=== PATIENT | female | born 1960 | race Caucasian/White ===

== ENCOUNTER 2024-06-02 06:39 | Day surgery (SDC) | payer BC, SELFPAY ==
[2024-06-02 11:39] VITALS: BP 115/64; BMI 28.8
[2024-06-02 11:46] VITALS: BMI 28.8
[2024-06-02 13:04] VITALS: BP 115/68
[2024-06-02 13:15] VITALS: BP 104/64
[2024-06-02 13:30] VITALS: BP 109/70
== END 2024-06-02 13:41 | disposition home or self-care (01) ==
LOC: GI 06:39
PROVIDERS: ATTENDING PHYSICIAN Internal Medicine
DX: K31.84 Gastroparesis (principal); Z98.890 Other specified postprocedural states
CPT/HCPCS: 43249; 43236; C1726; J0585

== ENCOUNTER → 2024-07-28 06:19 | Day surgery (SDC) | payer BC, SELFPAY | LOC: GI 06:19 | PROVIDERS: ATTENDING PHYSICIAN Internal Medicine Gastroenterology | DX: D12.0 Benign neoplasm of cecum (principal); D12.3 Benign neoplasm of transverse colon; K57.30 Diverticulosis of large intestine without perforation or abscess without bleeding; Q43.8 Other specified congenital malformations of intestine; Z86.0101 Personal history of adenomatous and serrated colon polyps | CPT/HCPCS: 45385; 88305 ==

== ENCOUNTER → 2024-11-24 11:23 | Outpatient (REF) | payer BC, MEDICARE, OTHER, SELFPAY | LOC: WDC 11:23 | PROVIDERS: ATTENDING PHYSICIAN Family Medicine | DX: N95.9 Unspecified menopausal and perimenopausal disorder (principal); Z13.820 Encounter for screening for osteoporosis; Z12.31 Encounter for screening mammogram for malignant neoplasm of breast; I10 Essential (primary) hypertension; E78.5 Hyperlipidemia, unspecified | CPT/HCPCS: 77063; 77067; 77080 ==

== ENCOUNTER → 2024-12-07 10:03 | Outpatient (REF) | payer BC, MEDICARE, OTHER, SELFPAY | LOC: WDC 10:03 | PROVIDERS: ATTENDING PHYSICIAN Family Medicine | DX: R92.8 Other abnormal and inconclusive findings on diagnostic imaging of breast (principal) | CPT/HCPCS: 76642 ==

== ENCOUNTER 2025-05-12 06:02 | Day surgery (SDC) | payer BC, MEDICARE, OTHER, SELFPAY ==
[2025-05-12 11:03] VITALS: BMI 26.7
[2025-05-12 11:04] VITALS: BMI 26.7
[2025-05-12 11:05] VITALS: BP 105/86
[2025-05-12 12:57] VITALS: BP 91/68
[2025-05-12 13:00] VITALS: BP 102/71
[2025-05-12 13:15] VITALS: BP 103/69
== END 2025-05-12 13:25 | disposition home or self-care (01) ==
LOC: SDS 06:02
PROVIDERS: ATTENDING PHYSICIAN Internal Medicine Gastroenterology
DX: R13.10 Dysphagia, unspecified (principal); R68.81 Early satiety; Z98.0 Intestinal bypass and anastomosis status; Z98.890 Other specified postprocedural states
CPT/HCPCS: 43450; 43236; C1726; J0585

== ENCOUNTER → 2025-08-18 10:10 | Outpatient (REF) | payer BC, OTHER, MEDICARE, SELFPAY ==
[2025-08-18 11:24] LABS: Hematocrit 42.2 % (37.0-47.0); Hemoglobin 13.2 g/dL (12.0-16.0); Mean Corp Hgb Conc. 31.3 g/dL (33.0-37.0); Mean Corpuscular Volume 79.9 fL (81.0-99.0); Nucleated Red Blood Cells % 0 %; Platelet Count 182 10^3/uL (130-400); Red Cell Dist. Width 15.1 % (11.5-14.5)
[2025-08-18 11:54] LABS: Iron 59 ug/dl (37-170)
[2025-08-18 12:03] LABS: Total Iron Binding Capacity 421 ug/dl (265-497)
[2025-08-18 12:46] LABS: Ferritin 11.6 ng/ml (11.1-264.0)
[2025-08-18 14:37] LABS: Folate 3.1 ng/ml (2.76-20); Vitamin B12 565 pg/ml (239-931)
== END ==
LOC: REG 10:10
PROVIDERS: ATTENDING PHYSICIAN Internal Medicine Hematology & Oncology; FAMILY PHYSICIAN Family Medicine
DX: C15.5 Malignant neoplasm of lower third of esophagus (principal); I82.890 Acute embolism and thrombosis of other specified veins; E55.9 Vitamin D deficiency, unspecified; D50.0 Iron deficiency anemia secondary to blood loss (chronic)
CPT/HCPCS: 36415; 82607; 82728; 82746; 83540; 83550; 85025

== ENCOUNTER 2025-08-23 16:34 | Inpatient (IN) | payer BC, MEDICARE, SELFPAY ==
[2025-08-23] VITALS (11 sets, daily range): BP systolic 102–135; BP diastolic 58–82; BMI 26.0
[2025-08-23 11:16] LABS: Hematocrit 39.0 % (37.0-47.0); Hemoglobin 12.5 g/dL (12.0-16.0); Mean Corp Hgb Conc. 32.1 g/dL (33.0-37.0); Mean Corpuscular Volume 78.0 fL (81.0-99.0); Nucleated Red Blood Cells % 0 %; Platelet Count 170 10^3/uL (130-400); Red Cell Dist. Width 15.0 % (11.5-14.5)
[2025-08-23 11:30] LABS: ALT (SGPT) 22 U/L (0-35); AST (SGOT) 29 U/L (14-36); Albumin 3.9 g/dl (3.5-5.0); Alkaline Phosphatase 101 U/L (38-126); Blood Urea Nitrogen 11 mg/dl (7-17); Calcium 8.9 mg/dl (8.4-10.2); Carbon Dioxide 25 mmol/L (22-30); Chloride 108 mmol/L (98-107); Glucose 111 mg/dl (70-99); Potassium 4.6 mmol/L (3.5-5.1); Sodium 137 mmol/L (135-145); Total Protein 7.1 g/dl (6.3-8.2); eGFR > 60.00
--- NOTE | 2025-08-23 11:33 | ED.GENMED ---
History of Present Illness
General
Chief Complaint: Abdominal Pain
Source: patient
Exam Limitations: none
Time Seen by Provider: 08/23/25 11:05
Nursing documentation reviewed up to this point in time: agreed with
History of Present Illness
History of Present Illness:
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 Patient
reports onset of symptoms 2 weeks ago and have been constant since that time. She says that she was hoping symptoms would improve but they have not resolved which prompted her to finally come to the ER. She describes her pain in the right upper
abdomen that radiates towards the right flank. No clear triggering or relieving factors noted. She has had some nausea and vomiting. No hematemesis reported. She says she has had dark stools initially they were loose now they are formed but
remain dark. No bright red blood reported. She has felt more weak and mildly dizzy over the past few days.
Past History
Past History
ED Past Medical History: Cancer (Esophageal), GERD, HTN, Hypercholesterolemia, Other (Diverticulosis and diverticulitis) and Other (PE)
ED Past Surgical History: Cholecystectomy, Gynecological (Bilateral oophorectomy) and Other (Mark Donny esophagectomy)
Social History
Tobacco: Former smoker
Alcohol: Occasional
Drug: None
Personal:
Living: with family
Employment: Employed
Family History
Family History: Hypertension
Phy Exam
Physical Exam
Physical Exam:
General: Awake, alert, oriented x3; no acute distress
Head: Normocephalic, atraumatic
Eyes: Conjunctiva normal, sclera anicteric
Throat: Airway intact, handling secretions
Neck: Trachea midline, supple without meningismus
Lungs: Clear to auscultation bilaterally, no wheezing, rales, rhonchi
Heart: Regular rate and rhythm, no murmurs, gallops, or rubs appreciated
Abd: Soft, non distended, tender to palpation right upper abdomen and epigastrium with no peritoneal signs or palpable hepatosplenomegaly
Rectal: Brown stool Hemoccult negative here
Neuro: Grossly intact
Skin: Warm and dry, no jaundice
Extremities: No edema in extremities, warm and well-perfused
Scores
Heart Failure Risk
Heart Failure Risk Score: Not Applicable
Heart Score for Chest Pain Patients
STEMI patient?: Not applicable
Withdrawal Assessment of Alcohol
Withdrawal Assessment Completed?: Not applicable
Course
Orders/Labs/Results
Orders:
Orders
08/23/25 11:07
Type And Crossmatch [Type+Screen] Urgent
Complete Blood Count/With Diff Urgent
Comprehensive Metabolic Panel Urgent
08/23/25 11:37
CT Abd/pelvis W Iv Cont Urgent
Comment:
Reason For Exam: upper abd pain
08/23/25 11:46
Prothrombin Time Urgent
08/23/25 12:58
GASTROINTESTINAL CONSULT Urgent
Consulting Provider: Marybeth Morales
Was physician already notified: Yes
Abnormal Lab Results
08/23/25
11:07
WBC 4.2 L 10^3/uL
(4.8-10.8)
MCV 78.0 L fL
(81.0-99.0)
MCH 25.0 L pg
(27.0-31.0)
MCHC 32.1 L g/dL
(33.0-37.0)
RDW 15.0 H %
(11.5-14.5)
MPV 10.8 H fL
(7.4-10.4)
Monocytes % 11.5 H %
(1.7-9.3)
Chloride 108 H mmol/L
(98-107)
Glucose 111 H mg/dl
(70-99)
08/23/25 11:07
08/23/25 11:07
Vital Signs
Initial and Last Documented VS:
Initial Vital Signs
Temp Pulse Resp BP Pulse Ox
37.1 C 78 16 121/82 98
08/23/25 09:44 08/23/25 09:44 08/23/25 09:44 08/23/25 09:44 08/23/25 09:44
Last Documented Vital Signs
Temp Pulse Resp BP Pulse Ox
37.1 C 61 20 102/62 96
08/23/25 09:44 08/23/25 12:45 08/23/25 12:45 08/23/25 12:40 08/23/25 12:45
MDM/Problems Addressed
Differential Diagnosis Includes:
Abdominal pain/dark stools: Cholelithiasis/choledocholithiasis, cholecystitis, gastritis/PUD, cancer recurrence, bowel obstruction
MDM/Problems Addressed:
65-year-old female presents to the ER for evaluation of upper abdominal pain and dark stools over the past 2 weeks. She has a history of esophageal cancer status postresection follows with oncology and GI (Dr. Vela). Vitals and exam are as
above.�Notably she had brown stool on rectal exam today which was heme-negative. Plan to place an IV check labs including CBC and CMP, INR. Will check type and screen. Sent for CT abdomen. Monitor closely reassess after the above.
Initial labs reviewed: Hemoglobin is 12.5 stable. Platelets acceptable. Chemistry no clinically significant abnormalities�notably normal BUN. Awaiting rest of labs and imaging. I did discuss the case with GI to evaluate.
CT reviewed shows signs concerning for mild small bowel obstruction. Patient still having pain but no vomiting. Plan to admit for continued management. N.p.o. for now, IV fluids in progress. Discussed with hospitalist.
Chronic conditions affecting care:
History of prior SMA clot on Coumadin; history of esophageal cancer
*Radiology
Radiology exam reviewed: radiology read reviewed
*Pulse Oximetry
SaO2: 96
Oxygen Mode of Delivery: Room air
Patient hypoxic: no (96%)
*Critical Care Note
Total Time (30-74mins, 75-104mins- exclusive of procedures): Not Applicable
Data Reviewed
Review of Other/Old Records Reveals: Labs, Records and Testing (Prior endoscopy reviewed)
Source: patient, records and family
Patient Management
Discussion with other providers: [employer] Hatcher[employer] Manager (Discussed with GI)
ED Attending Note
-
Portions of this chart may have been created with voice recognition software.� Occasional wrong word or��sound alike� substitutions may have occurred due to the inherent limitations of voice recognition software.
Discharge Plan
Departure
Patient Disposition: Admit
Date of Disposition: 08/23/25
Time of Disposition: 15:32
Admit to doctor: Poonam
Presentation/result/management discussed w/ accepting MD/DO: Hospitalist
Discharge Problem:
Small bowel obstruction
Prescriptions:
No Action
paroxetine HCl [Paxil] 10 MG tablet
10 mg PO PRN PRN (Reason: mental health)
acetaminophen 325 MG tablet
650 mg PO Q4HPRN PRN (Reason: mild pain/ARZATE/temp> 100.4F) 0RF
folic acid 0.4 MG tablet
0.4 mg PO DAILY
Omeprazole/Sodium Bicarbonate [Omeprazole-Bicarb 20-1,100 Cap] 1 EACH Capsule
1 cap PO DAILY
Eliquis 5 MG tablet
2.5 mg PO BID
ondansetron 4 mg tablet,disintegrating
4 mg PO Q8H PRN (Reason: nausea and vomiting) 3 Days Qty: 9 0RF
multivitamin Tablet,Chewable
1 tab PO DAILY
fluoxetine 10 mg Tablet
10 mg PO DAILY
pantoprazole 40 mg Tablet,Delayed Release (Dr/Ec)
40 mg PO BID
Referrals:
Audie Darden MD [Family Provider, Family Practice]
Interventions
Interventions:
*Risk Screen - Suicide Last Done: 08/23/25 09:44
*General Assessment Last Done: 08/23/25 09:44
*Neglect/Abuse Screening Last Done: 08/23/25 09:44
*ED- Fall Risk Assessment Last Done: 08/23/25 09:44
*ED COVID-19 Vaccine History Last Done: 08/23/25 09:44
*ED Influenza Vaccine History Last Done: 08/23/25 10:52
CG-Iwfqdr-Vstsypokdl Assessment Last Done: 08/23/25 11:08
Discharge Date and Time
Print Language: INDONESIAN
[2025-08-23 12:03] LABS: INR 1.02; PT 13.9 Sec (11.4-14.6)
--- NOTE | 2025-08-23 14:52 | CON.GI ---
Addendum entered and electronically signed by Marybeth Morales MD 08/23/25 16:10:
I saw and examined the patient.
The [employer]'s note was reviewed and I agree with the note.
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
of the medical history as listed below who presented to the emergency room with symptoms of dark stools for the past 1 week and was having diarrhea which seems to have now resolved. She denies any recent use of Pepto-Bismol. She is also been
having right upper quadrant pain radiating to the back and also having nausea and increasing symptoms of regurgitation over the past few days. She has been on pantoprazole 40 mg twice daily. She had an endoscopy with Dr. Vela in April and had
Botox injected to the pylorus and also dilatation of pylorus. She does elevate her head of the bed at night. She did take her Eliquis last night. She had a rectal exam done in the ER which was brown stool OB negative. On recent labs she was also
noted to have a low ferritin level and was going to be scheduled for iron infusions with Dr. Dickinson as outpatient. Her hemoglobin on admission was stable at 12.5, LFTs are normal, BUN is normal. She also had a CT on admission which showed mild
small bowel obstruction with suggested transition in the right lower quadrant no pneumatosis or bowel wall thickening noted no perforation. There is also diverticulosis without diverticulitis.
Assessment and plan nausea with increasing reflux and regurgitation over the past couple of days with right upper quadrant pain and dark stools and diarrhea for the past [address] consistent with partial small bowel obstruction most likely
related to adhesions from prior surgeries. Keep her n.p.o. and IVF, if she has further vomiting may need an NG tube placement also. PPI twice daily. if symptoms do not improve will likely need surgery consult also.
2. Although she reported dark stools she was heme-negative in the ER and her hemoglobin is currently stable. She does have iron deficiency and was going to receive iron infusions as outpatient with her oncologist. Eliquis is currently on hold. We
can start her on heparin since she has history of SMV thrombosis which would be easier to hold in case she needs surgery for the bowel obstruction
3. prior history of esophageal cancer status post esophagectomy with gastric pull-through.
4. History of gastroparesis after the esophagectomy and had Botox to the pylorus and pyloric dilatation in April
Sees Dr. Vela as outpatient.
Original Note:
Consultation
-
Date/Time Consultation Requested: 08/23/26 1245
Date/Time Consultation Performed: 08/23/25 1345
Requesting Provider: Dr. Wolf
Performing Provider: Dr. Morales/PAM Rock
Reason for Consultation: dark stool, fatigue
Medical History
Chief Complaint / HPI
Chief Complaint: dark stool, fatigue, abd pain
History of Present Illness:
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
scan (April 2021) with thickening in the right colon associated with abdominal pain and nonbloody diarrhea, TIA (2018), hyperlipidemia, vertigo, hypertension and iron deficiency anemia presents to the emergency room with 2-week history of fatigue,
right upper quadrant pain with radiation to the back and intermittent dark stools alternating between diarrhea/loose stools and solid stool. We are asked to evaluate for the same. She states for the past 2 weeks she has had issues with loose
stools. She states at that time that she would have a loose stool she was also having vomiting as well. She showed us a picture there were no signs of bleeding within that. She has to keep herself propped up. She is on PPI twice daily as well as
bicarbonate. She does state that during that days that she was having the loose stool with diarrhea she would have the episodes of vomiting. She states 1 day she would have loose stools with diarrhea. She could also have solid stools at times.
She states her stools were dark to black at times. They would also be brown. She denies any Pepto-Bismol or oral iron. She is on Eliquis. Her last dose was last evening. Her last meal was last evening which was spaghetti around 6 PM. She would
also have right upper quadrant discomfort that was dull and achy. With radiation around to her back. She is status postcholecystectomy. At this time it is not as bad she rates it as a '2'. She states earlier it was a 5/6. She denies any fevers,
chills, hematochezia, unintended weight loss, no sick contacts, no changes in medications. Rectal exam performed in the ER was brown OB negative stool. She does state that she is due for IV iron infusions to start as she had her blood count
checked by Dr. Mejia as an outpatient.
Past Medical History
Past Surgical History: Other (Cholecystectomy, Donny esophagectomy with gastric pull-through, J-tube, Bilateral oophorectomy)
Social History
Tobacco: Non-Smoker
Alcohol: Occasional (stooped (but on rare occasion previously))
Drug: None
Allergies / Home Medications
Allergy/AdvReac Type Severity Reaction Status Date / Time
hydromorphone (From Dilaudid) AdvReac suicidial Verified 08/23/25 09:47
thoughts
�Medication �Instructions �Recorded
paroxetine HCl 10 mg tablet (Paxil) 10 mg PO PRN PRN mental health 04/30/19
acetaminophen 325 mg tablet 650 mg (2 x 325 mg) PO Q4HPRN PRN 05/04/19
mild pain/ARZATE/temp> 100.4F
folic acid 400 mcg tablet 0.4 mg PO DAILY Supplement 05/25/21
Omeprazole/Sodium Bicarbonate 1 cap PO DAILY 12/04/21
[Omeprazole-Bicarb 20-1,100 Cap]
apixaban 5 mg tablet (Eliquis) 2.5 mg PO BID 10/23/22
ondansetron 4 mg disintegrating 4 mg PO Q8H PRN nausea and 02/06/23
tablet vomiting 3 days #9 tabs
multivitamin 1 tab PO DAILY 06/02/24
fluoxetine 10 mg tablet 10 mg PO DAILY 05/12/25
pantoprazole 40 mg tablet,delayed 40 mg PO BID 05/12/25
release
Review of Systems
-
All other systems: A 12 pt ROS was Negative except as stated above in HPI
Vital Signs
Temp Pulse Resp BP Pulse Ox
98.8 F 61 20 102/62 96
08/23/25 09:44 08/23/25 12:45 08/23/25 12:45 08/23/25 12:40 08/23/25 12:45
Physical Exam
Exam
HEENT: Anicteric
Respiratory: Clear
Cardiac: Regular Rhythm
GI: Soft, Non Distended, Normal Bowel Sounds and Tender (minimal RUQ tenderness)
Rectal: Hem Negative (Per ER brown OB neg stool )
Musculoskeletal: No Edema
Skin: Warm and Dry
Neuro: AO x 3
Psych: Calm
Results
WBC 4.2 10^3/uL (4.8-10.8) L 08/23/25 11:07
Hgb 12.5 g/dL (12.0-16.0) 08/23/25 11:07
Hct 39.0 % (37.0-47.0) 08/23/25 11:07
MCV 78.0 fL (81.0-99.0) L 08/23/25 11:07
Plt Count 170 10^3/uL (130-400) 08/23/25 11:07
Absolute Neuts (auto) 1.9 10^3/uL (1.4-6.5) 08/23/25 11:07
PT 13.9 Sec (11.4-14.6) 08/23/25 11:46
INR 1.02 08/23/25 11:46
Sodium 137 mmol/L (135-145) 08/23/25 11:07
Potassium 4.6 mmol/L (3.5-5.1) 08/23/25 11:07
Chloride 108 mmol/L (98-107) H 08/23/25 11:07
Carbon Dioxide 25 mmol/L (22-30) 08/23/25 11:07
BUN 11 mg/dl (7-17) 08/23/25 11:07
Creatinine 0.6 mg/dL (0.6-1.0) 08/23/25 11:07
Calcium 8.9 mg/dl (8.4-10.2) 08/23/25 11:07
Total Bilirubin 0.3 mg/dl (0.2-1.3) 08/23/25 11:07
AST 29 U/L (14-36) 08/23/25 11:07
ALT 22 U/L (0-35) 08/23/25 11:07
Alkaline Phosphatase 101 U/L (38-126) 08/23/25 11:07
Diagnostic Image Results:
None
Prior GI Procedures:
EGD: 05/12/25 (Dr. Vela) - An esophago-gastric anastomosis was found.
- A large amount of food (residue) in the stomach.
- Normal examined duodenum.
- An area in the pylorus successfully injected.
- Dilation performed at the pylorus with a 13.5-14.5-15.5 mm
Olympus balloon (to a maximum balloon size of 14.5 mm) dilator.
- No specimens collected.
Colonoscopy: 07/28/24 (Dr. Vela) - Preparation of the colon was fair.
- One 5 mm polyp in the cecum, removed with a cold
snare. Resected and retrieved.
- One 6 mm polyp in the transverse colon, removed with
a cold snare. Resected and retrieved.
- Diverticulosis in the recto-sigmoid colon, in the
sigmoid colon and in the descending colon.
EGD 06/02/24 (Dr. Nascimento) - An esophago-gastric anastomosis was found.
- A medium amount of food (residue) in the stomach.
- Normal pylorus. Injected with botulinum toxin.
Dilated.
- Normal examined duodenum.
- No specimens collected.
EGD 08/21/2020 (Dr. Vela) - Normal examined duodenum.
- A large amount of food (residue) in the stomach.
- Large hiatal hernia.
- An esophago-gastric anastomosis was found. Biopsied.
- Z-line variable, 28 cm from the incisors. Biopsied.
- Tortuous esophagus.
COLO 11/10/2019 (Dr. Vela) - Erythematous mucosa with mucus and ? inflammation in
the cecum. Biopsied.
- Normal mucosa in the entire examined colon. Biopsied.
- Diverticulosis in the entire examined colon.
- Internal hemorrhoids.
EGD 12/29/2018 (Dr. Faulknerale - Normal duodenal bulb and second portion of the
duodenum.
- Erythematous mucosa in the antrum. Biopsied.
- 3 cm hiatal hernia.
- Normal cardia, gastric fundus and gastric body.
- Nodularity, irregular Z line mucosa in the esophagus.
Biopsied.
- Rule out malignancy, esophageal tumor was found at the
gastroesophageal junction. Biopsied.
Assessment / Plan
-
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
scan (April 2021) with thickening in the right colon associated with abdominal pain and nonbloody diarrhea, TIA (2018), hyperlipidemia, vertigo, hypertension and iron deficiency anemia presents to the emergency room with 2-week history of fatigue,
right upper quadrant pain with radiation to the back and intermittent dark stools alternating between diarrhea/loose stools and solid stool. We are asked to evaluate for the same.Patient with right upper quadrant pain dull, aching, loose stools
alternating with solid stools. Vomiting intermittently. Black stools alternating with brown stools. Currently stool in ER brown OB negative per ER physician. Patient with waxing and waning pain. WBC 4.2, hemoglobin 12.5 (previously 13.2 on
08/18/2025), hematocrit 39.0, platelets 170, sodium 137, potassium 4.6, BUN 11, creatinine 0.6, glucose 111, total bilirubin 0.3, AST 29, ALT 22, alk phos 100
Impression:
Right upper quadrant pain
Vomiting
Alternating bowels between loose stools and solid
Iron deficiency anemia, on anticoagulation
History of esophageal cancer status post esophagectomy with gastric pull-through
GERD
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
Plan:
-Await CT Abd/Pelvis
-Continue PPI BID
-NPO
-Will discuss further recommendations after CT imaging resulted
-
-
Thank you for consultation and allowing me to participate in the patient's care. Please call the environmental program manager GI physician during the after hours with any questions or concerns.
--- NOTE | 2025-08-23 16:19 | HPS.HSE ---
Addendum entered and electronically signed by Ban Levin MD 08/23/25 17:05:
This is an addendum to the H&P written by Kirby Bishop on 08/23/2025. �Patient seen and examined independently with resident.
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
hypertension, hyperlipidemia, TIA, asthma, presenting with abdominal pain and dark stools for 2 weeks. Intermittent diarrhea. �Pain in the right upper quadrant rating to over the right flank. No blood in the vomit. �Weakness and dizziness over past
few days.
She has been having recurrent intermittent vomiting for the past few years sometimes associate with small amount of black material.
Vital signs unremarkable. �Stools were heme-negative.
Labs unremarkable.
CT abdomen pelvis shows mild small bowel obstruction with transition point in the right lower quadrant.
Patient with acute small bowel obstruction. �N.p.o., IV fluids. Hold Eliquis for now although should resume anticoagulation as soon as possible due to history of superior mesenteric vein thrombosis. �General surgery consulted.
Patient also with chronic intermittent vomiting with small amounts of black material. �No clear evidence of GI bleed and unclear if this represents upper GI bleeding at anastomosis site. �Continue Protonix 40 twice daily. �GI following.
Original Note:
Family Physician
-
Family Physician: Audie Darden
Chief Complaint
-
Right upper quadrant pain
History of Present Illness
65-year-old female with past medical history of esophageal cancer status post esophagectomy 5 years ago in remission, GERD, SMV thrombosis 2-3 years ago on Eliquis, TIA, anxiety/depression presents to the emergency room with 2-week history of
fatigue, right upper quadrant pain with radiation to the back and intermittent dark stools alternating between diarrhea/loose stools and solid stool. Patient report of right UQ pain ongoig for 2 weeks, radiating to right back. Pain is intermittent,
at times sharp. She admits to passing gas and having a BM. She notes of darkening stool for the past 1 week but denies bright red blood per rectum. She admits to nausea. She notes of having recurrent vomiting for the past 2 years sometime presence
of black material. Denies fever/chills/vomiting, dizziness, passing out. 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 She denies taking any NSAIDs at home.
Medical History
Past Medical History
Past Medical History: Reports GERD, Psychiatric and Other (Esophageal cancer, TIA, SMA thrombosis)
Past Surgical History: Reports Other (Cholecystectomy, [place] esophagectomy with gastric pull-through, J-tube, Bilateral oophorectomy)
Social History
Tobacco: Non-smoker
Alcohol: None
Drug: None
Personal:
Living: With Family
Employment: Retired
Family History
Family History: Not pertinent
Allergies / Home Medications
Allergies reflects when Allergies were last updated in [employer].
Home Medications with original date entered in [employer]
Allergy/Medication List:
Allergies
Allergies- no allergies to any medication
Patient confirmed that she is not allergic to Dilaudid.
Allergy/AdvReac Type Severity Reaction Status Date / Time
hydromorphone (From Dilaudid) AdvReac suicidial Verified 08/23/25 09:47
thoughts
Home Medications
paroxetine HCl 10 mg tablet (Paxil) 10 mg PO DAILY Mental Health/Anxiety 04/30/19
pantoprazole 40 mg tablet,delayed release 40 mg PO BID Gastrointestinal Issue 05/12/25
apixaban 2.5 mg tablet (Eliquis) 2.5 mg PO BID Blood Clot Prevention/Tx 08/23/25
ibuprofen 200 mg tablet (Advil) 200 mg PO Q6HPRN PRN mild pain 08/23/25
Review of Systems
-
History Source: Patient
A 12 point ROS was completed and negative except as noted: Yes
Abdomen/GI: Reports Abdominal Pain, Nausea and Diarrhea
Physical Exam
Vital Signs
Vital Signs
Temp Pulse Resp BP Pulse Ox
98.8 F 59 13 110/70 100
08/23/25 09:44 08/23/25 13:30 08/23/25 13:30 08/23/25 13:20 08/23/25 14:22
Physical Exam
General: Comfortable and Conversant
HEENT: NormoCephalic, Anicteric and Moist mucous membranes
Respiratory: Clear
Cardiac: S1/S2 and Regular Rhythm
GI: Soft, Non Distended, Normal Bowel Sounds and Tender (Mild right upper quadrant)
Rectal: Hem Negative ( from ED note)
Musculoskeletal: No Edema
Skin: Warm and Dry
Neuro: AO x 3
Hematologic/Lymphatic: No Lymphadenopathy
Psych: Calm
Laboratory Results
-
08/23/25 11:07
08/23/25 11:07
Laboratory Results
PT 13.9 Sec (11.4-14.6) 08/23/25 11:46
INR 1.02 08/23/25 11:46
Total Bilirubin 0.3 mg/dl (0.2-1.3) 08/23/25 11:07
AST 29 U/L (14-36) 08/23/25 11:07
ALT 22 U/L (0-35) 08/23/25 11:07
Alkaline Phosphatase 101 U/L (38-126) 08/23/25 11:07
Data Reviewed
-
CT Scan: Report Reviewed by me and Discussed with Physician
Lab Data: Labs Reviewed by me and Discussed with Physician
Impression/Plan
-
IMPRESSION:
Acute small bowel obstruction
Right upper quadrant pain
Nausea
Alternating bowels between loose stools and solid
History of iron deficiency anemia
History of esophageal cancer in remission s/p esophagectomy
History of SMA thrombosis
History of anxiety/depression
History of TIA
PLAN:
Acute small bowel obstruction
Suspect adhesion, anastomosis site erosion, mass.
Heme negative. Questionable for GI bleed regards to patient's history. Stable hemoglobin
Hold Eliquis. Pt denies any NSAID use.
NPO. Consult GI
Consult general surgery
IV PPI 40 mg twice daily
IV Compazine as needed
Low threshold for NG tube, not currently vomiting.
Hold all oral medications
CT Abd/pelvis Mild small bowel obstruction with suggested transition in the right lower quadrant. The bowel wall thickening or pneumatosis. No perforation or abscess. Mild diverticulosis without acute diverticulitis.
Right upper quadrant pain
Nausea
Alternating bowels between loose stools and solid
Hemodynamically stable. Heme negative. Stable HB.
IV Dilaudid 0.25 as needed
IV Compazine as needed for nausea
NPO
#History of iron deficiency anemia
#History of iron deficiency anemia
#History of esophageal cancer in remission s/p esophagectomy
# History of SMA thrombosis
#History of anxiety/depression
#History of TIA
Full code
SCD
NPO
[2025-08-23] MEDS: NSS 1000 IV (20:16)
[2025-08-23] MEDS: NSS (PRESERVATIVE FREE) 10 ML IV (20:19)
[2025-08-23] MEDS: PROTONIX IV 40 MG IV (20:19)
[2025-08-23] MEDS: MORPHINE SULFATE 1 MG IV (20:31)
--- NOTE | 2025-08-23 21:36 | PTCARENOTE ---
patient arrived from the ED via stretcher. patient ambulated to bed from stretcher independently. patient AOx3. assessment completed, oriented to room. POC ongoing.
--- NOTE | 2025-08-23 21:39 | PTCARENOTE ---
patient stated that 'Dilaudid gives me nightmares'. in EMR patient has adverse reaction to Dilaudid. reaction in EMR is listed as suicidal ideation. patient prescribed PRN Dilaudid. PAM Steve notified. new orders obtained. Dilaudid
discontinued. Morphine ordered for pain. PRN morphine given. See MAR for administration.
[2025-08-24 03:11] VITALS: BP 122/69
[2025-08-24] MEDS: NSS 1000 IV (06:12)
[2025-08-24] MEDS: COMPAZINE 5 MG IV ×2 (06:17→15:33)
[2025-08-24 07:00] VITALS: BP 118/69
[2025-08-24] MEDS: NSS (PRESERVATIVE FREE) 10 ML IV (08:07)
[2025-08-24] MEDS: PROTONIX IV 40 MG IV (08:08)
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
[2025-08-24 09:40] LABS: Hematocrit 37.5 % (37.0-47.0); Hemoglobin 11.7 g/dL (12.0-16.0); Mean Corp Hgb Conc. 31.2 g/dL (33.0-37.0); Mean Corpuscular Volume 78.9 fL (81.0-99.0); Platelet Count 157 10^3/uL (130-400); Red Cell Dist. Width 15.1 % (11.5-14.5)
[2025-08-24 09:45] LABS: APTT 33.5 Sec (23.4-35.0)
[2025-08-24 10:15] LABS: Magnesium 2.2 mg/dl (1.6-2.3)
[2025-08-24] MEDS: HEPARIN 25000 UNITS/250 ML IV (11:01)
--- NOTE | 2025-08-24 12:11 | CON.GS ---
Consultation
-
Date/Time Consultation Performed: 08/24/25
Requesting Provider: Jenelle
Performing Provider: Deisy
Reason for Consultation: SBO
Medical History
-
Chief Complaint: Black stools
History of Present Illness:
65F with hx esophagectomy and anastamotic stricture with reflux and occasional regurgitation, with hx of multiple endoscopic dilations, most recently this past Apr, presented to ED after speaking with GI office and reporting black stools. She takes
eliquis for hx of TIA and SMA thrombosis. They recommended ED eval. CT in the eval read as 'small bowel obstruction,' prompting GS consult. Pt denies abd pain, reports passing flatus as normal and BMs normal (every few days). She denies n/v.
Past Medical History
Past Medical History: Other (GERD, Psychiatric and Other (Esophageal cancer, TIA, SMA thrombosis))
Past Surgical History: Other (Cholecystectomy, [place] Donny esophagectomy with gastric pull-through, J-tube, Bilateral oophorectomy)
Social History
Tobacco: Non-Smoker
Alcohol: None
Drug: None
Personal:
Living: With Family
Employment: Retired
Family History
Family History: Reviewed & Noncontributory
Allergies / Home Medications
Allergy/AdvReac Type Severity Reaction Status Date / Time
hydromorphone (From Dilaudid) Allergy suicidial Verified 08/23/25 20:14
thoughts
�Medication �Instructions �Recorded �Confirmed �Type
paroxetine HCl 10 mg tablet (Paxil) 10 mg PO DAILY Mental 04/30/19 08/23/25 History
Health/Anxiety
pantoprazole 40 mg tablet,delayed 40 mg PO BID Gastrointestinal Issue 05/12/25 08/23/25 History
release
apixaban 2.5 mg tablet (Eliquis) 2.5 mg PO BID Blood Clot 08/23/25 08/23/25 History
Prevention/Tx
ibuprofen 200 mg tablet (Advil) 200 mg PO Q6HPRN PRN mild pain 08/23/25 08/23/25 History
Review of Systems
-
A 10 point review of systems was completed, and was negative except as per HPI.
Physical Exam
Vital Signs
Temp Pulse Resp BP Pulse Ox
98.1 F 66 18 118/69 95
08/24/25 07:00 08/24/25 07:00 08/24/25 07:00 08/24/25 07:00 08/24/25 07:00
08/23/25 08/24/25 08/25/25
06:59 06:59 06:59
Actual Weight 64.438 kg
Body Mass Index (BMI) 26.0
Lab Results
08/24/25 09:17
08/23/25 11:07
WBC 5.1 10^3/uL (4.8-10.8) 08/24/25 09:17
Hgb 11.7 g/dL (12.0-16.0) L 08/24/25 09:17
Hct 37.5 % (37.0-47.0) 08/24/25 09:17
Plt Count 157 10^3/uL (130-400) 08/24/25 09:17
Abs Immat Gran (auto) 0.0 10^3/uL (0-0.05) 08/23/25 11:07
Neutrophils % 46.2 % (42.2-75.2) 08/23/25 11:07
Physical Exam
General: Well Developed, Well Nourished and No Apparent Distress
GI: Soft, Non Tender and Non Distended
Skin: Warm and Dry
Neuro: AO x 3
Psych: Calm
Data Reviewed
-
CT Scan: Image Personally Visualized and interpreted, Report Reviewed by me, Discussed with Physician and Discussed with Patient
Labs: Labs Reviewed by me
Assessment / Plan
-
65F with black stools in setting of eliquis use and endoscopic dilation in Apr
AFVSS, no leukocytosis
NT ND on exam
CT essentially unremarkable on my interpretation, though study limited without PO contrast
GI is consulted
Would defere mgmt to GI
From surgical standpoint OK to ADAT
Pls call with ?s
--- NOTE | 2025-08-24 14:34 | W.PN.GI.CBS2 ---
Today's Communication / Plan
-
No n/v, passing flatus and BM. Surgical input appreciated, agree no signs of obstruction
Advance to low residue diet
Hgb stable 12.5--11.7
No signs of GI bleed, no further black stool, heme negative
OK for d/c from GI standpoint, OK to resume eliquis
Will sign off. Please call back if needed
Assessment / Plan
-
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
scan (April 2021) with thickening in the right colon associated with abdominal pain and nonbloody diarrhea, TIA (2018), hyperlipidemia, vertigo, hypertension and iron deficiency anemia presents to the emergency room with 2-week history of fatigue,
right upper quadrant pain with radiation to the back and intermittent dark stools alternating between diarrhea/loose stools and solid stool. We are asked to evaluate for the same.Patient with right upper quadrant pain dull, aching, loose stools
alternating with solid stools. Vomiting intermittently. Black stools alternating with brown stools. Currently stool in ER brown OB negative per ER physician. Patient with waxing and waning pain. WBC 4.2, hemoglobin 12.5 (previously 13.2 on
08/18/2025), hematocrit 39.0, platelets 170, sodium 137, potassium 4.6, BUN 11, creatinine 0.6, glucose 111, total bilirubin 0.3, AST 29, ALT 22, alk phos 100
Impression:
Right upper quadrant pain
Vomiting
Alternating bowels between loose stools and solid
Iron deficiency anemia, on anticoagulation
History of esophageal cancer status post esophagectomy with gastric pull-through
GERD
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
Subjective
Subjective
Date of Service: August 24, 2025
No complaints. Denies abd pain or bleeding.
Objective
Data Reviewed
Laboratory Data:
Laboratory Results
08/24/25 09:17
08/23/25 11:07
Laboratory Results
PT 13.9 Sec (11.4-14.6) 08/23/25 11:46
INR 1.02 08/23/25 11:46
APTT 33.5 Sec (23.4-35.0) 08/24/25 09:17
Magnesium 2.2 mg/dl (1.6-2.3) 08/24/25 09:18
Total Bilirubin 0.3 mg/dl (0.2-1.3) 08/23/25 11:07
AST 29 U/L (14-36) 08/23/25 11:07
ALT 22 U/L (0-35) 08/23/25 11:07
Alkaline Phosphatase 101 U/L (38-126) 08/23/25 11:07
Vital Signs and I&O:
Vital Signs
Temp Pulse Resp BP Pulse Ox
98.1 F 66 18 118/69 95
08/24/25 07:00 08/24/25 07:00 08/24/25 07:00 08/24/25 07:00 08/24/25 07:00
I&O
08/23/25 08/24/25 08/25/25
06:59 06:59 06:59
Intake Total 1000 / 1000
Balance 1000 / 1000
Physical Exam
Physical Exam
GI: Soft, Non Distended and Non Tender
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
[2025-08-24] MEDS: FERRLECIT 110 MG IV (15:27)
[2025-08-24 15:43] VITALS: BP 132/72
--- NOTE | 2025-08-24 16:24 | CM ---
Alert awake oriented pt who lives with Cullen her and grandson Boogie in 1 story home with 4 steps to enter.Offered VN she declined.
Pt is independent and drives.
No DME
Hx of [facility] . No VN hx.
Pharmacy [facility]
PCP Emil
PLAN Home no needs
== END 2025-08-24 17:10 | disposition home or self-care (01) | DRG 390 ==
LOC: 3 WEST ACU 16:34
PROVIDERS: ADMITTING PHYSICIAN Hospitalist; ATTENDING PHYSICIAN Internal Medicine; CONSULT PHYSICIAN Internal Medicine Gastroenterology; CONSULT PHYSICIAN Surgery; EMERGENCY PHYSICIAN Emergency Medicine; FAMILY PHYSICIAN Family Medicine
DX: K56.51 Intestinal adhesions [bands], with partial obstruction (principal); I10 Essential (primary) hypertension; J44.89 Other specified chronic obstructive pulmonary disease; E78.00 Pure hypercholesterolemia, unspecified; K21.9 Gastro-esophageal reflux disease without esophagitis; D50.9 Iron deficiency anemia, unspecified; K44.9 Diaphragmatic hernia without obstruction or gangrene; K59.00 Constipation, unspecified; K43.9 Ventral hernia without obstruction or gangrene; F41.9 Anxiety disorder, unspecified; F32.A Depression, unspecified; Z90.49 Acquired absence of other specified parts of digestive tract; Z79.01 Long term (current) use of anticoagulants; Z87.891 Personal history of nicotine dependence; Z85.01 Personal history of malignant neoplasm of esophagus; Z87.19 Personal history of other diseases of the digestive system; Z86.73 Personal history of transient ischemic attack (TIA), and cerebral infarction without residual deficits; Z86.0100 Personal history of colon polyps, unspecified; Z86.718 Personal history of other venous thrombosis and embolism
CPT/HCPCS: 74177; 80053; 83735; 84443; 85025; 85027; 85610; 85730; 86850; 86900; 86901; 99285; J2916; Q9967

== ENCOUNTER 2025-09-24 10:59 | Emergency (ER) | payer BC, MEDICARE, SELFPAY ==
[2025-09-24 11:01] VITALS: BP 117/78
[2025-09-24 12:22] LABS: Hematocrit 41.7 % (37.0-47.0); Hemoglobin 13.5 g/dL (12.0-16.0); Mean Corp Hgb Conc. 32.4 g/dL (33.0-37.0); Mean Corpuscular Volume 78.5 fL (81.0-99.0); Nucleated Red Blood Cells % 0 %; Platelet Count 164 10^3/uL (130-400); Red Cell Dist. Width 16.3 % (11.5-14.5)
[2025-09-24 12:41] LABS: ALT (SGPT) 27 U/L (0-35); AST (SGOT) 28 U/L (14-36); Albumin 4.5 g/dl (3.5-5.0); Alkaline Phosphatase 107 U/L (38-126); Blood Urea Nitrogen 18 mg/dl (7-17); Calcium 9.7 mg/dl (8.4-10.2); Carbon Dioxide 25 mmol/L (22-30); Chloride 105 mmol/L (98-107); Glucose 110 mg/dl (70-99); Potassium 4.7 mmol/L (3.5-5.1); Sodium 136 mmol/L (135-145); Total Protein 7.8 g/dl (6.3-8.2); eGFR > 60.00
[2025-09-24 14:00] VITALS: BP 135/80
--- NOTE | 2025-09-24 14:21 | ED.GENMED ---
History of Present Illness
General
Chief Complaint: Esophageal Problem
Source: patient
Exam Limitations: none
Time Seen by Provider: 09/24/25 12:58
Nursing documentation reviewed up to this point in time: agreed with
History of Present Illness
History of Present Illness:
65-year-old female here for an episode at 430 this morning of vomiting twice, brown material that she is concerned may be blood.
She was admitted here 08/23 to 08/24 for dark stools
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 Dickinson), history of significant reflux esophagitis/GERD on 'every PPI in the world,'.
States she takes omeprazole with bicarb, Carafate at bedtime, Prilosec, Tums, has been evaluated by Dr. Vela and she states at her last visit at the end of July she was told 'there was nothing more she could do.' She has also been evaluated
by Dr. Vogel GI Dr. Freire and was told there was nothing more he could do. She now has an appointment with the GI doctor in [place] on October 09.
She has chronic intermittent frequent at times, episodes of severe burning chest pain/GERD with intermittent episodes of vomiting/regurgitation, has Zofran at home as needed. She states this is the first time it has been brown-colored. Has a
picture on her phone of brown emesis, no red blood no black color.
Her last iron infusions were from 09/11 to 09/18
She denies dizziness or lightheadedness, denies trouble breathing, has had chest pain that she relates to GERD.denies abdominal pain. Denies dark stools.
Past History
Past History
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
ED Past Surgical History: Cholecystectomy, Gynecological (Bilateral oophorectomy) and Other ([place] [facility] esophagectomy)
Social History
Tobacco: Former smoker
Alcohol: Occasional
Drug: None
Personal:
Living: with family
Employment: Employed
Family History
Family History: Hypertension
Review of Systems
Review of Systems
Allergies reviewed?: Yes
All Other Systems: ROS reviewed and negative except as documented in HPI and ROS
Phy Exam
Physical Exam
Physical Exam:
GENERAL: No acute distress. A&Ox3.
CONSTITUTIONAL: Afebrile.
EYES: clear, conjunctivae normal
ENMT: moist mucus membranes, Pharynx nl
RESPIRATORY: Regular respirations, nonlabored, lungs clear.
CARDIOVASCULAR: Regular rate and rhythm, no murmurs, no rubs.
GI: Soft, nontender, normal BS
Rectal exam: Small amount of brown stool hematest negative.
MUSCULOSKELETAL: Moves with ease. Well perfused.
SKIN: Warm, dry, pink
PSYCH: Normal mood and affect. Well kept, interactive and appropriate
NEUROLOGIC: Awake, alert and oriented. No focal neurological deficits
Course
Orders/Labs/Results
Orders:
Orders
09/24/25 11:55
Type And Crossmatch [Type+Screen] Urgent
CMP [Comprehensive Metabolic Panel] Urgent
Complete Blood Count/With Diff Urgent
09/24/25 14:07
Electrocardiogram (*1) Urgent
Reason for Study: Chest Pain
EKG- Treatment ONCE
Abnormal Lab Results
09/24/25
11:55
MCV 78.5 L fL
(81.0-99.0)
MCH 25.4 L pg
(27.0-31.0)
MCHC 32.4 L g/dL
(33.0-37.0)
RDW 16.3 H %
(11.5-14.5)
Monocytes % 10.0 H %
(1.7-9.3)
BUN 18 H mg/dl
(7-17)
Glucose 110 H mg/dl
(70-99)
09/24/25 11:55
09/24/25 11:55
Vital Signs
Initial and Last Documented VS:
Initial Vital Signs
Temp Pulse Resp BP Pulse Ox
97.8 F 98 20 117/78 97
09/24/25 11:01 09/24/25 11:01 09/24/25 11:01 09/24/25 11:01 09/24/25 11:01
Last Documented Vital Signs
Temp Pulse Resp BP Pulse Ox
97.8 F 68 21 135/80 94
09/24/25 11:01 09/24/25 14:30 09/24/25 14:30 09/24/25 14:00 09/24/25 14:36
MDM/Problems Addressed
MDM/Problems Addressed:
65-year-old female here for an episode at 430 this morning of vomiting twice, brown material that she is concerned may be blood.
She was admitted here 08/23 to 08/24 for dark stools
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 Dickinson), history of significant reflux esophagitis/GERD on 'every PPI in the world,'.
States she takes omeprazole with bicarb, Carafate at bedtime, Prilosec, Tums, has been evaluated by Dr. Vela and she states at her last visit at the end of July she was told 'there was nothing more she could do.' She has also been evaluated
by Dr. Jaspreet Freire and was told there was nothing more he could do. She now has an appointment with the GI doctor in [place] on October 09.
She has chronic intermittent frequent at times, episodes of severe burning chest pain/GERD with intermittent episodes of vomiting/regurgitation, has Zofran at home as needed. She states this is the first time it has been brown-colored. Has a
picture on her phone of brown emesis, no red blood no black color.
Her last iron infusions were from 09/11 to 09/18
She denies dizziness or lightheadedness, denies trouble breathing, has had chest pain that she relates to GERD.denies abdominal pain. Denies dark stools.
CBC normal
CMP normal
Vital signs normal
She has had no vomiting since arrival
Hematest negative stool
Patient is stable for discharge.
She has an appointment with a third GI specialist in [place] next month.
Plan: She has been taking Carafate only at bedtime for Dr. Vela
I recommended that she take it before each meal and at bedtime for the next week at least and then let her next GI doctor know if it helped
Rx snt to her pharmacy
She is comfortable with this plan
*Pulse Oximetry
SaO2: 94
Oxygen Mode of Delivery: Room air
Patient hypoxic: no
*EKG
EKG Intrepretation Date: 09/24/25
Interpretation: normal
Heart Rate: 73
Rate: normal
Rhythm: sinus
Morgan: normal axis
Interval: normal interval
QRS Pattern: normal QRS
Ischemia: no ischemia
*Critical Care Note
Total Time (30-74mins, 75-104mins- exclusive of procedures): Not Applicable
ED Attending Note
-
Portions of this chart may have been created with voice recognition software.� Occasional wrong word or��sound alike� substitutions may have occurred due to the inherent limitations of voice recognition software.
Discharge Plan
Departure
Patient Disposition: Home (Routine Discharge)
Date of Disposition: 09/24/25
Time of Disposition: 14:39
Patient with high blood pressure during this ER visit?: No
Condition: Fair
Discharge Problem:
Chest pain due to GERD
Instructions: Acid Reflux and GERD in Adults (DC)
Prescriptions:
New
sucralfate [Carafate] 1 gram tablet
1 g PO ACHS Qty: 30 0RF
No Action
paroxetine HCl [Paxil] 10 MG tablet
10 mg PO DAILY
pantoprazole 40 mg Tablet,Delayed Release (Dr/Ec)
40 mg PO BID
Eliquis 2.5 mg Tablet
2.5 mg PO BID
acetaminophen [Tylenol] 325 mg tablet
650 mg PO Q6H PRN (Reason: Pain) Qty: 90 0RF
Referrals:
GI Doctor at [place] [Other] - Keep scheduled appt
Audie Darden MD [Family Provider, Family Practice]
Activity Restrictions/Additional Instructions:
As we discussed, no sign of significant bleeding which is reassuring. Your blood work is normal
Try taking the Carafate before each meal and at bedtime for the next and let the [place] GI doctor know if it helps
I sent a prescription to your pharmacy for more Carafate
Your EKG is normal
Interventions
Interventions:
*General Assessment Last Done: 09/24/25 11:01
*Neglect/Abuse Screening Last Done: 09/24/25 11:01
*ED COVID-19 Vaccine History Last Done: 09/24/25 13:39
*ED Influenza Vaccine History Last Done: 09/24/25 13:39
[facility] Risk Assessment Tool Last Done: 09/24/25 13:37
*Risk Screen - Suicide (C-SSRS) Last Done: 09/24/25 11:01
*Nursing Disposition Last Done: 09/24/25 15:02
PW-Eslote-Mbcjgfveha Assessment Last Done: 09/24/25 13:39
Discharge Date and Time
Discharge Date/Time: 09/24/25 15:02
Print Language: GERMAN
== END 2025-09-24 15:02 | disposition home or self-care (01) ==
LOC: EMR 10:59
PROVIDERS: EMERGENCY PHYSICIAN Emergency Medicine; FAMILY PHYSICIAN Family Medicine
DX: K21.9 Gastro-esophageal reflux disease without esophagitis (principal); I10 Essential (primary) hypertension; E78.00 Pure hypercholesterolemia, unspecified; K55.059 Acute (reversible) ischemia of intestine, part and extent unspecified; Z79.01 Long term (current) use of anticoagulants; Z85.01 Personal history of malignant neoplasm of esophagus; Z87.891 Personal history of nicotine dependence; Z82.49 Family history of ischemic heart disease and other diseases of the circulatory system
CPT/HCPCS: 99284; 80053; 85025; 86850; 86900; 86901; 93005